=== PATIENT | female | born 1950 | race Caucasian/White ===

== ENCOUNTER 2020-10-17 15:06 | Outpatient (REF) | payer SELFPAY ==
--- NOTE | 2020-10-17 15:55 | MHC.AU.P13 ---
Hearing Instrument Follow-Up- Binaural Date of Visit: 10/17/20 Right Ear: Service Line Bus Cleaner: Model: [employer] M50-R Serial Number: [id number] Warranty: 08/09/2022 Battery Size: Rechargeable Technical Solution Architect: 1M Type of Dome: Small Power Type of Wax Guard: CeruShield Dispensed By: [facility] Date of Fittin05/25/2019 Left Ear: Service Line Bus Cleaner: Phonak Model: [employer] M50-R Serial Number: [id number] Warranty: 08/09/2022 Battery Size: Rechargeable Technical Solution Architect: 1M Type of Dome: Small Power Type of Wax Guard: CeruShield Dispensed By: [facility] Date of Fittin05/25/2019 Follow-Up Summary: Patient reports that she had gone awhile without wearing the hearing aids, and had left them in the auto bumper mechanic. She recently started wearing them again, and found that the right hearing aid won't turn on. The light on the right hearing aid is also staying green, even when it is out of the auto bumper mechanic. Hearing aids were inspected. I was able to get the light to turn off by holding down the button on the right hearing aid for 10+ seconds; however, it would then not turn back on. Both hearing aids will be sent to [email or web address] as a precaution. A new auto bumper mechanic will be requested. Recommendations: Patient will be contacted when materials have arrived. Diagnosis Code(s): Primary Diagnosis: H90.3 Bilateral Sensorineural Hearing Loss Signature: Provider: Marcie Dejesus, ARVIND-A
== END 2020-10-17 15:07 | disposition home or self-care (01) ==
LOC: HO.HAP 15:06
PROVIDERS: Visit Provider Internal Medicine
DX: Z13.89 Encounter for screening for other disorder (principal)

== ENCOUNTER 2020-11-01 14:35 | Outpatient (REF) | payer SELFPAY | END 2020-11-01 14:36 | disposition home or self-care (01) | LOC: HO.HAP 14:35 | PROVIDERS: Visit Provider Internal Medicine | DX: Z13.89 Encounter for screening for other disorder (principal) ==

== ENCOUNTER 2021-07-09 13:24 | Outpatient (REF) | payer SELFPAY ==
--- NOTE | 2021-07-09 14:07 | MHC.AU.HFU ---
Hearing Instrument Follow-Up- Binaural Date of Visit: 07/09/21 Right Ear: Search Engine Marketing Manager: Phonak Model: Audeo M50-R Serial Number: [id number] Repair Warranty: 08/09/2022 Battery Size: Rechargeable Simulation Analyst: 1M Type of Dome: Small Power Type of Wax Guard: CeruShield Dispensed By: [facility] Date of Fittin05/25/2019 Left Ear: Search Engine Marketing Manager: Phonak Model: [employer] M50-R Serial Number: [id number] Repair Warranty: 08/09/2022 Battery Size: Rechargeable Simulation Analyst: 1M Type of Dome: Small Power Type of Wax Guard: CeruShield Dispensed By: [facility] Date of Fittin05/25/2019 Follow-Up Summary: Binaural aids dropped off with patient reporting the aids suddenly turn off, then when they come back on, the sound is very loud. Also having problems pairing aids to cell phone. Sending both aids out for repair under warranty. Recommendations: Recommendations (Other): Call patient when in. Diagnosis Code(s): Primary Diagnosis: H90.3 Bilateral Sensorineural Hearing Loss Services Performed: HARDY Non-Quantity Charges: HANC: NonBillable Event Signature: Provider: Marcie Moss, ARVIND-A
== END 2021-07-09 13:25 | disposition home or self-care (01) ==
LOC: HO.HAP 13:24
PROVIDERS: Visit Provider Internal Medicine
DX: Z13.89 Encounter for screening for other disorder (principal)

== ENCOUNTER 2021-07-16 16:17 | Outpatient (REF) | payer SELFPAY | END 2021-07-16 16:18 | disposition home or self-care (01) | LOC: HO.HAP 16:17 | PROVIDERS: Visit Provider Internal Medicine | DX: Z13.89 Encounter for screening for other disorder (principal) ==